=== PATIENT | male | born 1965 | race Caucasian/White ===

== ENCOUNTER 2023-12-02 12:41 | Emergency (ER) | payer OTHER, SELFPAY ==
[2023-12-02 12:42] VITALS: PULSE 72; RESP 14; O2SAT 96
[2023-12-02 12:43] VITALS: BP 156/91; PULSE 73; RESP 12; TEMP 35.8; O2SAT 100; BMI 28.7
--- NOTE | 2023-12-02 13:01 | RAD_ITS ---
STUDY: X-RAY - RIGHT WRIST REASON FOR EXAM: Male, 58 years old. Wrist pain following a fall. TECHNIQUE: 3 view(s) of the wrist were obtained. COMPARISON: None. FINDINGS: Common fracture of the distal radial metaphysis with extension to the articular surface. The articular surface is depressed by 3.2 mm. Normal radiocarpal articulation. Normal distal radioulnar articulation. Normal carpal bones. Normal carpal articulations. Normal carpometacarpal articulation of the thumb. Normal second through fifth carpometacarpal articulations. Normal visualized metacarpal bones. Soft tissue swelling. RAD/Wrist min 3 Views IMPRESSION: Comment a fracture of the distal radial metaphysis with extension to the articular surface and depression of the articular surface by 3.2 mm Soft tissue swelling. Electronically Signed: Bonilla Doherty MD at 13:35 EDT ,
--- NOTE | 2023-12-02 13:01 | RAD_ITS ---
STUDY: X-RAY - RIGHT ELBOW REASON FOR EXAM: Male, 58 years old. Pain following injury. TECHNIQUE: 4 view(s) of the elbow. COMPARISON: None. FINDINGS: Mildly depressed fracture of the radial head and radial neck. Normal radiocapitellar and ulnotrochlear articulations. Joint effusion and soft tissue swelling. RAD/Elbow min 3 Views IMPRESSION: Mildly depressed fracture of the radial head extending into the radial neck. Joint effusion and soft tissue swelling. Electronically Signed: Bonilla Doherty MD at 13:36 EDT ,
--- NOTE | 2023-12-02 13:01 | RAD_ITS ---
STUDY: X-RAY - RIGHT SHOULDER REASON FOR EXAM: Male, 58 years old. Injury following a fall. TECHNIQUE: 2 view(s) of the shoulder. COMPARISON: None. FINDINGS: Anterior dislocation of the shoulder joint. Normal acromioclavicular joint. Normal acromion. Normal humeral head and visualized proximal humerus. The soft tissue structures are unremarkable. Normal visualized pulmonary apex. RAD/Shoulder min 2 Views IMPRESSION: Anterior dislocation of the shoulder joint. Electronically Signed: Bonilla Doherty MD at 13:38 EDT ,
[2023-12-02] MEDS: oxyCODONE 5 MG Tablet 10 MG PO (13:07)
--- NOTE | 2023-12-02 13:57 | RAD_ITS ---
STUDY: X-RAY - RIGHT SHOULDER REASON FOR EXAM: Male, 58 years old. Injury -- Axillary view and additional Y-view TECHNIQUE: Y view and axillary view view(s) of the shoulder. COMPARISON: Comparison is made with prior examination done earlier in the day. FINDINGS: Normal glenohumeral articulation. Normal acromioclavicular joint. Normal acromion. Normal humeral head and visualized proximal humerus. The soft tissue structures are unremarkable. Normal visualized pulmonary apex. RAD/Shoulder min 2 Views IMPRESSION: Normal x-ray examination of the shoulder. Electronically Signed: Bonilla Doherty MD at 14:07 EDT ,
[2023-12-02] MEDS: Diphth,Pertuss(Acell),Tet Vac 0.5 ML Vial IM (14:10)
[2023-12-02 14:42] VITALS: BP 150/81; PULSE 71; RESP 15
--- NOTE | 2023-12-02 15:05 | EDS_ITS ---
HPI HPI - Fall History of Present Illness Chief Complaint: Trauma Informant: patient and spouse/S.O. Narrative Narrative: Presents from [facility] after a fall coming down a roof. He works for himself. He states there was a board he was stepping on that was slipping he tried to catch it with his feet he stumbled falling down outstretched right arm. He is right-hand dominant. He injured his right wrist and elbow. He did not hit his head. Did not lose conscious. He is not on anticoagulants. No neck or back pain. No chest or abdominal pain. No lower extremity pain. He was placed in a c-collar and given a sling. Sent over by private vehicle by [facility]. No medications given. PFSH PFS Medical History no medical history Home Medications ?Medication ?Instructions ?Recorded ?Last Taken ?Type docusate sodium 100 mg capsule 100 mg PO BID #60 caps 12/02/23 Unknown Rx (Colace) ibuprofen 600 mg tablet 600 mg PO Q6H PRN PRN pain #20 12/02/23 Unknown Rx TABLETS oxycodone-acetaminophen 5 mg-325 1 tab PO Q6H PRN PRN Pain 3 days 12/02/23 Unknown Rx mg tablet #12 TABLETS Allergy/AdvReac Type Severity Reaction Status Date / Time No Known Allergies Allergy Verified 12/02/23 12:42 Family History no significant family his Surgical History no surgical history Social History household members: spouse housing: house Smoking Status: Former smoker ROS ROS ED Constitutional Constitutional ED: Denies chills, fever(s) or sweats Eyes Eyes: Denies change in vision ENT ENT ED: Denies dysphagia or sore throat Cardiovascular Cardiovascular: Denies chest pain, leg edema, palpitations or racing heartbeat Respiratory/Chest Respiratory/Chest: Denies cough, dyspnea or dyspnea on exertion Gastrointestinal Gastrointestinal: Denies abdominal pain, diarrhea, nausea or vomiting Genitourinary Genitourinary ED: Denies dysuria, hematuria or urinary frequency Musculoskeletal Musculoskeletal: Reports extremity pain; Denies back pain or neck pain Integumentary Denies rash or wounds Neurologic Neurologic: Denies headache(s), paresthesias or weakness EXAM Physical Exam Const Vital Signs: 12/02/23 12:42 12/02/23 12:43 12/02/23 12:51 Temperature 96.5 F L Temperature Source Temporal Pulse Rate 72 73 Respiratory Rate 14 12 Respiratory Effort Normal Non-Labored Respiratory Depth Normal Respiratory Pattern Normal Blood Pressure 156/91 H Blood Pressure Mean 112 Pulse Ox 96 100 Oxygen Delivery Method Room Air Room Air 12/02/23 14:42 12/02/23 15:29 Temperature 96.5 F L Temperature Source Pulse Rate 71 71 Respiratory Rate 15 15 Respiratory Effort Respiratory Depth Respiratory Pattern Blood Pressure 150/81 H 150/81 H Blood Pressure Mean 104 104 Pulse Ox 100 Oxygen Delivery Method Positive well nourished and well developed Constitutional Narrative: GCS 15. General Appearance ED: well developed and NAD HEENT Reports moist mucous membranes normocephalic and atraumatic Eyes EOMs intact bilaterally and conjunctivae normal General Eye ED: Yes normal appearance of both eyes Neck full ROM, no lymphadenopathy and supple Neck Narrative: C-collar removed after no midline tenderness he is able to rotate left and right without any pain. General: Negative for tenderness Chest Wall inspection of chest normal and palpation of chest normal Chest: Negative for tenderness Resp normal respiratory effort and normal air movement Effort and Inspection: symmetric chest movement; Negative for respiratory distress Cardio regular rate, regular rhythm and no murmurs Peripheral Pulses: pulses 2+ throughout GI normal to inspection, nondistended, normoactive bowel sounds and non-tender Palpation: Negative for guarding or rebound tenderness present Back/Spine no CVA tenderness and no thoracic nor lumbar tenderness Extremity Extremity Narrative: Right upper extremity: No clavicle tenderness no pain of the shoulder no defects or deformities. Sling was removed he was able to extend only to 150 degrees pain with pronation and supination at the radial head. Pain at the distal radius with swelling of the dorsal wrist. Abrasion noted olecranon there is no laceration. No hand tenderness. Left upper extremity: Nontender pulses that distally. Lower extremities: Negative logroll bilaterally. General Extremety ED: Yes tenderness Neuro oriented x3 and no sensory deficits noted Sensorium / Orientation: awake and alert Skin no rashes or lesions noted and no wounds MDM MDM MDM Narrative Medical decision making narrative: Interventions / MDM: Differential diagnosis: Fracture, abrasion, fall Diagnosis considered but do not suspect: No clinical open fracture, no clinical shoulder dislocation My EKG interpretation: N/A Imaging independently reviewed and interpreted by myself: 3 views right wrist: Distal radius fracture comminuted. 3 views right elbow: Radial head fracture. 3 views right shoulder: Initial read by radiology concerns for anterior dislocation repeat 2 views axillary and scapular Y view: No dislocation also read by radiology. External documents reviewed: N/A Test considered but not ordered:N/A ED course:patient c-collar was cleared with Nexus criteria. Patient fall outstretched hand pain radius and radial head. Reported concerns for dislocation of the shoulder by [facility] clinic was not there. X-rays ordered of the 3 regions. He was given 10 mg of oxycodone. His tetanus is updated. X-ray confirms fracture distal radius, radial head there was initial concerns for shoulder dislocation anterior per radiology I discussed radiologist clinically not there. We repeated 2 views scapular Y and axillary confirming no dislocation. No orthopedist on-call for discussion of fracture for close follow-up today. He was placed in a long-arm splint combined with AP splint volarly of the wrist. He has a sling. Prescription for pain control along with stool softeners. He is given outpatient follow-up with orthopedics. Splinting: Prior to splinting, Xeroform dressing placed abrasion of the elbow along with dressing to secure. Long nylon sleeve of the arm was placed, Kerlix dressing with extra padding at the elbow and wrist region. 5 inch plaster long- arm splint was placed to the dorsal hand additional 4 inch volar splint placed in the volar aspect of the hand to the proximal forearm. This was secured with Marcelo wrap. Neurovascular intact post splinting. Re-evaluation: stable Disposition discussed with patient/family/significant other: Patient and significant other Case discussed with consulting clinician: N/A This note was generated with Mi[employer] dictation software. It may contain incorrect words, spelling, and punctuation that were not noted in checking the note before signing. Radiography Diagnostic Testing: Clinical Impression(s) from Imaging Studies Elbow X-Ray 12/02/23 13:01 IMPRESSION: Mildly depressed fracture of the radial head extending into the radial neck. Joint effusion and soft tissue swelling. Electronically Signed: Bonilla Doherty MD at 13:36 EDT , Shoulder X-Ray 12/02/23 13:01 IMPRESSION: Anterior dislocation of the shoulder joint. Electronically Signed: Bonilla Doherty MD at 13:38 EDT , Wrist X-Ray 12/02/23 13:01 IMPRESSION: Comment a fracture of the distal radial metaphysis with extension to the articular surface and depression of the articular surface by 3.2 mm Soft tissue swelling. Electronically Signed: Bonilla Doherty MD at 13:35 EDT , Shoulder X-Ray 12/02/23 13:57 IMPRESSION: Normal x-ray examination of the shoulder. Electronically Signed: Bonilla Doherty MD at 14:07 EDT , Discharge Plan Triage Chief Complaint: Trauma ED Provider: Carlo Rm Dx/Rx/DC Orders Clinical Impression: Closed fracture of radial head, Distal radius fracture, right, Fall Instructions: Distal Radius Fx, ED Radial Head Fracture Prescriptions: New oxycodone-acetaminophen 5-325 mg tablet 1 tab PO Q6H PRN PRN (Reason: Pain) 3 Days Qty: 12 0RF ibuprofen 600 mg tablet 600 mg PO Q6H PRN PRN (Reason: pain) Qty: 20 0RF docusate sodium [Colace] 100 mg capsule 100 mg PO BID Qty: 60 0RF Primary Care Provider: Care Physician,No Primary Referrals: Leland Rhoades DO [Med Staff - Active Staff] - 3-5 Days Rinku Gavin MD [Med Staff - Active Staff] - 3-5 Days Care Physician,No Primary [Primary Care Provider] - Activity Restrictions/Additional Instructions: Maintain your splint. Take pain medicine as prescribed. Stool softeners to avoid constipation. Follow-up with orthopedics for outpatient evaluation and further management plans. Print Language: Greek Disposition Disposition: Home, Self Care Discharge Date/Time: 12/02/23 15:29
[2023-12-02 15:29] VITALS: BP 150/81; PULSE 71; RESP 15; TEMP 35.8; O2SAT 100
== END 2023-12-02 15:29 | disposition home or self-care (01) ==
PROVIDERS: Emergency Provider Emergency Medicine; Visit Provider Emergency Medicine
DX: S52.591A Other fractures of lower end of right radius, initial encounter for closed fracture (principal); W13.2XXA Fall from, out of or through roof, initial encounter; Z87.891 Personal history of nicotine dependence; S52.121A Displaced fracture of head of right radius, initial encounter for closed fracture; Y93.89 Activity, other specified
CPT/HCPCS: 29105; 73030; 73080; 73110; 90715; 99282

== ENCOUNTER → 2025-01-03 | Outpatient (CLI) | payer OTHER, SELFPAY ==
[2025-01-03 16:44] LABS: Hematocrit 41.3 % (40-54); Hemoglobin 14.0 g/dL (13.0-16.5); Immature Granulocytes Count 0.020 X10^3/uL (0.0-0.0); Mean Corp Hgb Conc 33.9 g/dL (32-36); Mean Corpuscular Volume 92.4 fL (80-94); Mean Platelet Vol. 11.2 fl (6.2-12.0); NRBC Flagged by Analyzer 0 % (0-5); Platelet Count 172 K/mm3 (150-450); RBC Distribution Width CV 12.5 % (11.6-14.6); RBC Distribution Width SD 42.7 fl (35.1-43.9); Red Blood Count 4.47 M/mm3 (4.6-6.2); White Blood Count 7.5 K/mm3 (4.4-11.0)
[2025-01-03 19:22] LABS: AST(SGOT) 34 U/L (<=37); Alanine Aminotransfer ALT/SGPT 33 U/L (<=46); Albumin, Serum 4.8 g/dL (3.5-5.0); Alkaline Phosphatase 59 U/L (40-129); Anion Gap 16 (5-15); BUN 19 mg/dL (4-19); BUN/Creat Ratio 19.1 RATIO (10-20); Calcium,Total 9.6 mg/dL (7.6-11.0); Carbon Dioxide 21.1 mmol/L (21.0-32.0); Chloride 105 mmol/L (98-108); Cholesterol 246 mg/dL (<=200); Globulin 2.9 g/dL (2.2-4.2); Glucose 88 mg/dL (70-99); Low Density Lipoprotein Calc. 130 mg/dL; PSA,Total- Diagnostic 0.97 ng/mL (0.00-4.00); Potassium 4.1 mmol/L (3.3-5.1); Triglycerides 60 mg/dL; Very Low Density Lipoprotein 12 mg/dL (5-40); cholesterol:hdl ratio screen 2.37
== END | disposition home or self-care (01) ==
LOC: BIMLAB 15:19
PROVIDERS: Visit Provider Internal Medicine
DX: N52.9 Male erectile dysfunction, unspecified (principal); Z13.6 Encounter for screening for cardiovascular disorders; Z13.29 Encounter for screening for other suspected endocrine disorder; Z13.1 Encounter for screening for diabetes mellitus; Z12.5 Encounter for screening for malignant neoplasm of prostate
CPT/HCPCS: 36415; 80053; 80061; 84153; 84443; 85025